=== PATIENT | female | born 1960 | race Caucasian/White ===

== ENCOUNTER 2018-04-15 11:33 | Day surgery (SDC) | payer MEDICARE, MEDICAID ==
--- NOTE | 2018-04-15 05:38 | History and Physical Report ---
DATE: 04/14/2018. CHIEF COMPLAINT AND HISTORY OF CHIEF COMPLAINT: This patient presents with a history of an intractable lumbar radiculopathy. Due to the failure of all therapies, she is here for an implanted spinal catheter infusion trial with hydromorphone to determine if the implantation of a permanent system can be of any value in pain control. A surgical evaluation at [facility] suggested surgery. The patient opted not to have it. She does have plate and screw fusion in the cervical spine, but her primary pain is in the back, hips, and legs. PAST MEDICAL HISTORY: Hypertension, thyroid disease, reflux esophagitis, gastritis, pancreatitis. PAST SURGICAL HISTORY: Tonsils, gallbladder, cervical spine fusion. MEDICATIONS ON ADMISSION: To be provided. ALLERGIES: Pregabalin. SOCIAL HISTORY: Smoking, caffeine. FAMILY HISTORY: Thyroid disease, asthma. REVIEW OF SYSTEMS: The patient seems appropriate and in no acute distress. The remainder of the systems review shows glasses, head and neck pain, sleep disturbance, blood pressure problems, bladder dysfunction, gastrointestinal disease, hepatitis, depression, difficulty sleeping. PHYSICAL EXAMINATION: General: Height and weight unavailable. Vital Signs: Not available. HEENT: Within normal limits. Lungs: Clear. Heart: Regular rate and rhythm. Abdomen: Nontender. Musculoskeletal: Examination of the musculoskeletal system shows diffuse tenderness throughout the low back and extending into the lower extremities. Sensory field abnormalities are identified across both L4 and L5. Motor function shows some weakness symmetrically and bilaterally. Ambulation: No assistive device utilized. Neurologic: Cranial nerves are intact. IMPRESSION: LUMBAR RADICULOPATHY, ICD-10 CODE M54.16 AND M54.17. PLAN: The patient presents today for the implanted spinal catheter infusion trial with hydromorphone to determine if the implantation of a permanent pump can be of any value in pain control. The risks, side effects, and complications have been carefully reviewed and discussed. These include spinal cord injury, nerve root injury, paralysis, and spinal headache. Information was provided through the branch officer including a CD Rom explaining the procedures, risks, side effects, and complications. She has also had contact with a [employer] apprenticeship representative. The patient understands and has consented. The patient understands the surgically implanted catheter exteriorizing an externalized catheter to an external pump. A blood patch will be performed as an adjunct measure to help prevent a headache. This will require the patient lie flat for four hours and then be slowly elevated for one hour. The procedure will be considered outpatient, although an overnight stay will be considered. JOB NUMBER: [id number] cc: Bertha Bell
[~2018-04-15 11:33] MED LIST: ACETAMINOPHEN 1,000 MG/100 ML BTL IV ONE; CEFAZOLIN 2 Gram 2 GM/50 ML BAG IVPB ONE; FAMOTIDINE 20MG TABLET PO ONE; HYDROMORPHONE PF 2MG/ML AMP 0.008 MG in 0.9 % SODIUM CHLORIDE 10ML VIA 0.996 ML IV ONE; HYDROMORPHONE PF 2MG/ML AMP 4 MG in 0.9 % SODIUM CHLORIDE 500ML 498 ML IV ONE; HYDROMORPHONE PF 2MG/ML AMP 8 MG in 0.9 % SODIUM CHLORIDE 500ML 496 ML IV ONE; MECLIZINE 25 MG TABLET PO ONE; METOCLOPRAMIDE 10 MG TABLET PO ONE
[2018-04-15] MEDS ORDERED: BUPIVACAINE 0.5% W/EPI MPF 30 ML VIAL IVP ONE (11:34)
[2018-04-15] MEDS ORDERED: LIDOCAINE 1% MDV (10MG/ML) 20ML VIAL SQ ONE (11:34)
[2018-04-15] MEDS ORDERED: MIDAZOLAM HCL 2MG/2ML VIAL IV ONE (11:34)
[2018-04-15] MEDS ORDERED: FENTANYL PF 100MCG/2ML VIAL IV ONE (11:34)
[2018-04-15] MEDS ORDERED: LIDOCAINE 1% W/EPI 1:200,000 MPF 30ML SQ ONE (11:34)
[2018-04-15] MEDS ORDERED: CEFAZOLIN 1G VIAL IM ONE (11:34)
[2018-04-15] MEDS ORDERED: *PACU ONLY* KETAMINE HCL 10 MG/ML (20ML) VIAL IV ONE (11:34)
[2018-04-15] MEDS ORDERED: PROPOFOL 10 MG/ML VIAL IV ONE (11:34)
[2018-04-15] MEDS ORDERED: DIPHENHYDRAMINE HCL 25 MG CAPSULE PO PRN ×2 (14:45)
[2018-04-15] MEDS ORDERED: HYDROMORPHONE HCL 2 MG/ML VIAL IM PRN ×2 (14:45)
[2018-04-15] MEDS ORDERED: NALOXONE 0.4 MG/1 ML VIAL IVP PRN (14:45)
[2018-04-15] MEDS ORDERED: ACETAMINOPHEN 325 MG TAB PO PRN ×2 (14:45)
[2018-04-15] MEDS ORDERED: METOCLOPRAMIDE 10 MG TABLET PO PRN (14:45)
[2018-04-15] MEDS ORDERED: RINGERS SOLUTION,LACTATED 1,000 ML IV SCH (14:45)
[2018-04-15] MEDS ORDERED: OXYCODONE/APAP 10MG-325MG TABLET PO PRN ×2 (14:45)
[2018-04-15] MEDS ORDERED: AL HYDROX/MAG HYDROX 30ML UD PO PRN (14:45)
[2018-04-15] MEDS ORDERED: TEMAZEPAM 15 MG CAPSULE PO PRN ×2 (14:45)
[2018-04-15] MEDS ORDERED: HYDROCODONE/APAP 7.5/325MG TABLET PO PRN ×2 (14:45)
[2018-04-15] MEDS ORDERED: METOCLOPRAMIDE HCL 10 MG/2 ML VIAL IVP PRN (14:45)
[2018-04-15] MEDS ORDERED: SENNOSIDES/DOCUSATE SODIUM UD CAPSULE PO PRN ×2 (14:45)
[2018-04-15] MEDS ORDERED: DIPHENHYDRAMINE HCL 50 MG/ML VIAL IVP PRN ×2 (14:45)
--- NOTE | 2018-04-15 15:30 | Operative Note - Ferro ---
DATE OF SURGERY: 04/15/18 PREOPERATIVE DIAGNOSIS: POST LUMBAR LAMINECTOMY SYNDROME, ICD-10 CODE = M96.1 WITH RADICULOPATHY, ICD- 10 CODE = M54.16 AND M54.17. SURGERY: 1. FLUOROSCOPIC-GUIDED ACCESS SPINAL SPACE AT L3-4 WITH PLACEMENT OF THIN- WALLED SPINAL CATHETER POSITIONED T12. 2. DIAGNOSTIC MYELOGRAPHY WITH RADIOLOGIC SUPERVISION AND INTERPRETATION. 3. BOLUS OPIOID HYDROMORPHONE INTO THE SPINAL SPACE 0.004 MG. 4. INCISION, SUBCUTANEOUS DISSECTION, AND ANCHORING OF CATHETER TO SUPRASPINOUS FASCIA WITH AN ANCHORING DEVICE AND NONABSORBABLE SUTURE. 5. INCISION, SUBCUTANEOUS DISSECTION, AND CREATION OF SUBCUTANEOUS POUCH AT LEFT POSTERIOR SUPERIOR GLUTEAL MARGIN. 6. TUNNELING MIDLINE SPINAL CATHETER INTO POUCH POSTERIOR, INTERFACE SPINAL CATHETER WITH SECOND CATHETER COMPONENT, SECOND CATHETER COMPONENT TUNNELED 6 CM SUPERIOR EXITING THE SKIN. 7. INTERFACE EXTERNAL CATHETER WITH EXTERNAL PUMP SET TO DELIVER HYDROMORPHONE AT 0.08 MG A DAY. 8. CLOSURE OF INCISIONS WITH VICRYL FOR FASCIA AND RUNNING NYLON FOR SKIN. 9. EPIDURAL BLOOD PATCH AT L4-5, 20 ML AUTOLOGOUS BLOOD STERILE TECHNIQUE LEFT ANTECUBITAL. ALL DRESSINGS PLACED REINFORCING SITES PLACING CATHETER AND ALL CONNECTIONS UNDER STERILE DRESSING. SURGEON: JULIANNA ROSAS D.O. ANESTHESIA: LOCAL SEDATION. ANESTHESIA PROVIDER: TRUNG CHAN CRNA INDICATION: This patient presents with a history of an intractable post laminectomy radiculopathy. Due to the failure of all therapies, she is here for a spinal opioid infusion trial with an implanted catheter Hydromorphone to determine if the implantation of a permanent system can be of any value in pain control. SURGERY: Intravenous line, vital sign monitoring, IV sedation by Anesthesia. The patient positioned prone. Sterile prep, sterile technique. The spinal interspace at L3-4 above the multiple level laminectomy was marked and infiltrated. A #20 gauge spinal needle paramedian approach beveled with a long axis into the spinal space. With CSF flow, a thin-walled spinal catheter was advanced and positioned at T12. Diagnostic myelography performed. Flow characteristics were appropriate; smooth and linear. Tip of the catheter identified straight. With appropriate flow characteristics, a bolus of Hydromorphone 0.004 mg given into the spinal space. The skin above and below the needle infiltrated, incision made and subcutaneous dissection was conducted to the supraspinous fascia. Needle removed. The catheter was anchored to the supraspinous fascia with an anchoring device and nonabsorbable suture. At the left posterior gluteal margin, a site picked by the patient ultimately for the pump, skin infiltrated, incision made and subcutaneous dissection was conducted to form a small pouch of suitable size and depth. A tunneling tool was used to carry the catheter into the subcutaneous pouch and then at the posterior gluteal pouch, the catheter was resected and interfaced with a second catheter component. This second catheter component was tunneled 6 cm superior exiting the skin. The external catheter was then interfaced with an external pump set to infuse Hydromorphone at 0.08 mg a day. The midline incision was closed with Vicryl for fascia and a running nylon for skin. The posterior gluteal pouch was closed with a running nylon. At L4-5, one level below the dural puncture, skin infiltrated and an #18 gauge Tuohy needle with loss-of- resistance into the epidural space. Simultaneously, 20 mL autologous blood drawn with sterile technique left antecubital. This blood was placed onto the field and then an epidural blood patch was performed to this level with this blood. The needle was removed. Dressings were placed securing the catheter and all connections under sterile dressing. She was transported to the Recovery Room flat, pillow under head and knees. She tolerated the procedure without difficulty. Full functionality of extremities and appropriate responses noted. She will be monitored on the Floor for four hours flat, slowly elevated for one , and then evaluated for discharge. She will be kept overnight, that has been encouraged, for observation. IN THE MORNING, DISCHARGE INSTRUCTIONS: 1. The sites are to remain clean and dry. No showering or bathing in any way that would disrupt dressings. If it happens, contact the clinic. 2. Standard medications resumed, including the antibiotic, Levaquin, 500 mg once a day for 14 days. 3. She will return to the office within the two-week trial three times to increase the infusion. The first will happen in the next 2 to 3 days. Spinal opioid side-effects including respiratory depression, nausea, vomiting, constipation, urinary retention, lightheadedness or rash have all been discussed and reviewed. All instructions provided, numbers to contact if problems given. She will be discharged in the morning. cc: Dr. Gallardo JOB NUMBER: [id number] [facility]
[2018-04-15] MEDS ORDERED: FUROSEMIDE 40 MG TABLET PO PRN (16:03)
[2018-04-15] MEDS ORDERED: PROMETHAZINE HCL 25 MG TABLET PO PRN (16:03)
[2018-04-15] MEDS ORDERED: ALBUTEROL HFA 8 GM INHALER INH PRN (16:04)
[2018-04-15] MEDS ORDERED: [UNRECOGNIZED DRUG - REMARK] PO SCH (17:00)
[2018-04-15] MEDS ORDERED: CEFAZOLIN 2 Gram 2 GM/50 ML BAG IVPB SCH (21:30)
[2018-04-15] MEDS ORDERED: MAGNESIUM OXIDE 400 MG TABLET PO SCH (22:00)
[2018-04-15] MEDS ORDERED: PAROXETINE HCL 10 MG TABLET PO SCH (22:00)
[2018-04-15] MEDS ORDERED: SIMVASTATIN 20 MG TABLET PO SCH (22:00)
[2018-04-15] MEDS ORDERED: LISINOPRIL 20 MG TABLET PO SCH (22:00)
[2018-04-15] MEDS ORDERED: GABAPENTIN 300 MG CAPSULE PO SCH (22:00)
[2018-04-16] MEDS ORDERED: LEVOTHYROXINE SODIUM 125 MCG TABLET PO SCH (07:00)
[2018-04-16] MEDS ORDERED: PANTOPRAZOLE SODIUM 40 MG TABLET PO SCH (12:00)
--- NOTE | 2018-04-18 14:51 | RADIOLOGY REPORT ---
DATE: 04/15/2018. EXAM: AP VIEW OF THE LUMBAR SPINE. HISTORY: Postoperative. TECHNIQUE: AP view of the lumbar spine. COMPARISON: None. FINDINGS: Stimulating wires are partially seen. Surgical clips in the right upper quadrant. Abundant stool in the colon. IMPRESSION: PARTIAL VISUALIZATION OF STIMULATING WIRES. JOB NUMBER: [id number] MTDD
== END 2018-04-15 20:08 | disposition home or self-care (01) ==
LOC: SUR 11:33 → MEDSURG 15:20 → SUR 20:08
PROVIDERS: ATTEND Pain Medicine Interventional Pain Medicine
DX: M96.1 Postlaminectomy syndrome, not elsewhere classified (principal); M54.17 Radiculopathy, lumbosacral region; M54.16 Radiculopathy, lumbar region; E03.9 Hypothyroidism, unspecified; I10 Essential (primary) hypertension; F17.200 Nicotine dependence, unspecified, uncomplicated; E11.9 Type 2 diabetes mellitus without complications
CPT/HCPCS: 72020; 94760; J0690; J1170; J7040

== ENCOUNTER 2018-04-29 11:42 | Day surgery (SDC) | payer MEDICARE, MEDICAID ==
--- NOTE | 2018-04-29 07:19 | History and Physical Report ---
DATE: 04/29/2018. CHIEF COMPLAINT AND HISTORY OF CHIEF COMPLAINT: This patient presents with an ongoing implanted spinal catheter trial with hydromorphone. She is here for permanent implantation of spinal infusion device after a successful trial. PAST MEDICAL HISTORY: No interval changes. PAST SURGICAL HISTORY: No interval changes. MEDICATIONS ON ADMISSION: To be provided. ALLERGIES: Pregabalin, levofloxacin. SOCIAL HISTORY: No interval changes. FAMILY HISTORY: No interval changes. REVIEW OF SYSTEMS: The patient is appropriate and in no acute distress. PHYSICAL EXAMINATION: General: Height and weight unavailable. Vital Signs: Not available. HEENT: Within normal limits. Lungs: Clear. Heart: Regular rate and rhythm. Abdomen: Nontender. Musculoskeletal: Examination of the musculoskeletal system shows the dressings for the implanted catheter trial are intact and in place. Further examination shows the externalized infusion device is in place. The dressings covering the implanted catheter are all in place. There is no breakdown or drainage. Neurologic: Cranial nerves are intact. IMPRESSION: 1. LUMBAR RADICULOPATHY, ICD-10 CODE M54.16 AND M54.17. 2. IMPLANTED SPINAL CATHETER INFUSION TRIAL WITH HYDROMORPHONE. PLAN: The patient is here for implantation of a permanent system due to the ongoing trial with greater than 75 percent pain control. The potential risks, side effects, and complications have been reviewed and the patient understands. We will remove all of the external components and interface the pump at the posterior gluteal margin with the implanted catheter. JOB NUMBER: [id number] cc: Bertha Bell
[~2018-04-29 11:42] MED LIST changes: +HYDROMORPHONE HCL 0.08 GM in 0.9 % SODIUM CHLORIDE 10ML VIA 40 ML IV ONE; +HYDROMORPHONE PF 2MG/ML AMP 0.004 MG in 0.9 % SODIUM CHLORIDE 10ML VIA 0.998 ML IV ONE; -HYDROMORPHONE PF 2MG/ML AMP 0.008 MG in 0.9 % SODIUM CHLORIDE 10ML VIA 0.996 ML IV ONE; -HYDROMORPHONE PF 2MG/ML AMP 4 MG in 0.9 % SODIUM CHLORIDE 500ML 498 ML IV ONE; -HYDROMORPHONE PF 2MG/ML AMP 8 MG in 0.9 % SODIUM CHLORIDE 500ML 496 ML IV ONE
[2018-04-29] MEDS ORDERED: PROPOFOL 10 MG/ML VIAL IV ONE (11:43)
[2018-04-29] MEDS ORDERED: FENTANYL PF 100MCG/2ML VIAL IV ONE (11:43)
[2018-04-29] MEDS ORDERED: MIDAZOLAM HCL 2MG/2ML VIAL IV ONE (11:43)
[2018-04-29] MEDS ORDERED: LIDOCAINE 1% MDV (10MG/ML) 20ML VIAL SQ ONE (11:43)
--- NOTE | 2018-04-29 20:48 | Operative Note - Ferro ---
DATE OF SURGERY: 04/29/18. PREOPERATIVE DIAGNOSES: 1. POST LUMBAR LAMINECTOMY SYNDROME, ICD-10 CODE = M96.1 WITH RADICULOPATHY, ICD-10 CODE = M54.16 AND M54.17. 2. IMPLANTED SPINAL CATHETER INFUSION TRIAL OF HYDROMORPHONE. SURGERY: 1. FLUOROSCOPIC-GUIDED INCISION, SUBCUTANEOUS DISSECTION, AND REMOVAL OF EXTERNAL CATHETER. 2. FLUOROSCOPIC-GUIDED INCISION, SUBCUTANEOUS DISSECTION, AND CREATION OF SUBCUTANEOUS POUCH AT LEFT POSTERIOR SUPERIOR GLUTEAL MARGIN FOR PLACEMENT OF PUMP IDENTIFIED A MEDTRONIC 40 ML PROGRAMMABLE. 3. REVISION IMPLANTED SPINAL CATHETER USING CONNECTOR AND SECOND CATHETER COMPONENT. REVISE CATHETER INTERFACED TO PUMP IDENTIFIED A MEDTRONIC 40 ML PROGRAMMABLE PRE-FILLED WITH 1 MG PER ML CONCENTRATION OF HYDROMORPHONE POSITIONED ON FIELD. 4. PLACEMENT OF PUMP INTERFACED TO SPINAL CATHETER INTO POUCH SECURING TO POSTERIOR FASCIA WITH NONABSORBABLE SUTURE AT THREE POINTS PUMP EYELETS. 5. PLACEMENT OF CURVED #24 GAUGE MANUEL NEEDLE INTO ACCESS PORT PROGRAMMABLE PUMP, ASPIRATION AND CLEARING CATHETER OF OPIOID AND CSF MIXTURE. 6. DIAGNOSTIC MYELOGRAPHY WITH RADIOLOGIC SUPERVISION AND INTERPRETATION CONFIRMING FUNCTIONALITY OF THE SYSTEM. 7. CLOSURE OF INCISION WITH VICRYL FOR FASCIA, RUNNING SUBCUTICULAR VICRYL FOR SKIN. DERMABOND CLOSURE. 8. PROGRAMMING OF PUMP TO DELIVER BY CONTINUOUS INFUSION HYDROMORPHONE AT 0.3 MG PER DAY. SURGEON: JULIANNA ROSAS D.O. ANESTHESIA: LOCAL SEDATION. ANESTHESIA PROVIDER: SHANNON LINDSEY CRNA INDICATIONS: This patient presents with a implanted spinal catheter infusion trial of Hydromorphone with 75% pain control. Due to the failure of all other therapy and the success of the trial, she presents today for a implantation of a permanent system. PROCEDURE: Intravenous line, vital sign monitoring, IV sedation, prepped draped sterile technique, patient positioned on the operating table prone. The external dressings were removed. The external pump was removed. Sterile prep, sterile technique and using a local. A small left posterior gluteal pouch was infiltrated with local, incision made and subcutaneous dissection was conducted to the interface between the indwelling and external catheter. The connector was clamped and the external catheter cut and removed, pulling away from the incision. This incision was then infiltrated with local, widened and deepened to accommodate a pump identified as a Medtronic 40 mL programmable. The pump was placed onto the field, pre-filled with Hydromorphone at 1 mg per mL. The implanted, indwelling spinal catheter was then revised, resected using a connector, and a second catheter component. This revised catheter was then interfaced to the pump on the field. Antibiotic irrigation and Bovie for hemostasis. The pump was placed into the pouch and secured to the posterior fascia with nonabsorbable suture, three points, pump eyelets. With the pump secured into the pouch and connected to the catheter, a #24 gauge Manuel needle was inserted into the access port and 1 mL of catheter contents was aspirated clearing the catheter of opioid and CSF mixture. Contrast flow characteristics were appropriate, smooth and linear. The functionality of the system was then confirmed. The incision was then closed with Vicryl for fascia and running subcuticular Vicryl for skin, Dermabond closure. She was transported to the Recovery Room stable with no side-effects from the procedure or the sedation. When fully awake and alert, complex programming was then performed setting her base rate at 0.3 mg per day. She monitored until stable and then prepared for discharge. DISCHARGE INSTRUCTIONS: 1. The site is to remain clean and dry.No showering or bathing in any way that would disrupt dressings. If it happens, contact the clinic. 2. Standard medications resumed including Levaquin, the antibiotic, 500 mg once a day for 14 days. 3. The patient will evaluate the increase and monitor her side-effects. Respiratory depression, nausea, vomiting, constipation, urinary retention, light headedness or rash. If it happens, contact the clinic. All other instructions provided, numbers to contact if problems were given. She will be contacted by the office in 24 hours to set up an appointment in 7 to 10 days to evaluate the sites. Throughout this period of time, she is to keep her activities low. Limit bend, lift, push, pull. All other instructions provided, numbers to contact if problems were given. She was then discharged. cc: Dr. Gallardo JOB NUMBER: [id number] [facility]
== END 2018-04-29 15:00 | disposition home or self-care (01) ==
LOC: SUR 11:42
PROVIDERS: ATTEND Pain Medicine Interventional Pain Medicine
DX: M96.1 Postlaminectomy syndrome, not elsewhere classified (principal); M54.16 Radiculopathy, lumbar region; M54.17 Radiculopathy, lumbosacral region
CPT/HCPCS: 62367; C1755; J1170

== ENCOUNTER 2018-09-16 10:36 | Inpatient (IN) | payer MEDICARE, MEDICAID ==
--- NOTE | 2018-09-16 06:28 | History and Physical - Ferro ---
CHIEF COMPLAINT/HISTORY OF CHIEF COMPLAINT: This patient had an implanted catheter trial initiated on 04/15/18 with a pump implant on 04/28/18. Although all of her postop measures appeared to be good, according to the patient just slightly before or on 09/08/18 she started to notice an error in the outer most aspect of the pump pouch left posterior gluteal margin start to breakdown. By 09/10/18 or this patient stated to have drainage. She went to a local Emergency Room, she was started on an antibiotic. She was seen in the office within the last twenty-four to forty- eight hours and was found to have a lateral margin incisional line infection which was draining a purulent discharge. She has been afebrile. There were no labs available for review. She is here for probable removal of the pump and catheter and a possible removal and relocation. PAST MEDICAL HISTORY: Hypertension, hypothyroidism, reflux esophagitis, gastritis, and chronic pancreatitis. PAST SURGICAL HISTORY: Tonsils, gallbladder, and cervical spine fusion. MEDICATIONS ON ADMISSION: List to be provided. ALLERGIES: None. FAMILY/PSYCHOSOCIAL HISTORY: Social history - Smoking and caffeine. Family history - Thyroid disease, asthma, and diabetes. SYSTEMS REVIEW: The patient is appropriate in no acute distress. The remainder of the systems review is positive for glasses, head and neck pain, sleep disturbance, blood pressure, bladder dysfunction, gastrointestinal disease , hepatitis, depression, and difficulty sleeping. PHYSICAL EXAMINATION: Height and weight are not known. Vital signs - Blood pressure 140/80. Current examination shows the pouch at the left posterior gluteal margin to have an area of drainage at the lateral margin. There is bruising or discoloration along the more medial aspect of the pump although there is no breakdown noted. The area does not appear to be warm to palpation. Her chronic pain pattern is a lumbar radiculopathy somewhat more left than right. Motor sensory abnormalities are noted to the left. Sensory victor are intact. NEUROLOGIC: Cranial nerves are intact. IMPRESSION: 1. INTRACTABLE LUMBAR RADICULOPATHY, ICD-10 CODE M54.16 AND M54.17. 2. IMPLANTED SPINAL FUSION SYSTEM DEVICE, PUMP AND CATHETER WITH INFECTED PUMP POUCH. PLAN: The patient did discuss the history of sepsis from an infection which required an extended hospitalization. The source of the infection appeared to be vague. Currently she has a pump pouch infection at the left posterior gluteal margin. My plan will be to open the pouch, at minimum remove and replace the system to the opposite right side. I suggested to the patient that a high probability will be a complete removal and initiation of antibiotic therapy. Depending upon the severity of the infection this could be oral antibiotics. If relatively severe she will be set up for PIC line and intravenous home antibiotic therapy. This will be decided on the day we open the pouch. The patient is prepared for either and all potential situations. During the initial evaluation the pouch had not opened, there was no exposure of device and although there was drainage it was not copious, and she was not demonstrating systemic illness. The potential risks, side effects and complications have been reviewed and discussed. We will take cultures from every pouch and location. She will stay overnight at minimum and then be evaluated for discharge the following morning. JOB NUMBER: [id number] MTDD
[2018-09-16] MEDS ORDERED: BUPIVACAINE 0.5% W/EPI MPF 30 ML VIAL IVP ONE (10:37)
[2018-09-16] MEDS ORDERED: PROPOFOL 10 MG/ML VIAL IV ONE (10:37)
[2018-09-16] MEDS ORDERED: HYDROMORPHONE HCL 2 MG/ML VIAL IV ONE (10:37)
[2018-09-16] MEDS ORDERED: FENTANYL PF 100MCG/2ML VIAL IV ONE (10:37)
[2018-09-16] MEDS ORDERED: MECLIZINE 25 MG TABLET PO ONE (10:37)
[2018-09-16] MEDS ORDERED: KETAMINE HCL 100MG/1ML VIAL INJ ONE (10:37)
[2018-09-16] MEDS ORDERED: CEFAZOLIN 2 Gram 2 GM/50 ML BAG IVPB ONE (10:37)
[2018-09-16] MEDS ORDERED: FAMOTIDINE 20MG TABLET PO ONE (10:37)
[2018-09-16] MEDS ORDERED: LIDOCAINE 1% W/EPI 1:200,000 MPF 30ML SQ ONE (10:37)
[2018-09-16] MEDS ORDERED: MIDAZOLAM HCL 2MG/2ML VIAL IV ONE (10:37)
[2018-09-16] MEDS ORDERED: CEFAZOLIN 1G VIAL IM ONE (10:37)
[2018-09-16] MEDS ORDERED: METOCLOPRAMIDE 10 MG TABLET PO ONE (10:37)
[2018-09-16] MEDS ORDERED: ACETAMINOPHEN 1,000 MG/100 ML BTL IV ONE (10:37)
[2018-09-16 10:53] LABS: BASO % 0.2 % (0-6); EOS % 2.2 % (0-6); GRAN % 61.4 % (47-80); HEMATOCRIT 41.3 % (35.0-47.0); HEMOGLOBIN 13.4 gm/dl (11.6-16.0); LYMPH % 29.7 % (16-45); MEAN CELL VOLUME 82.8 fl (81-97); MEAN CORPUSCULAR HEMOGLOBIN 26.9 pg (27-33); MEAN CORPUSCULAR HGB CONC 32.4 g/dl (32-36); MEAN PLATELET VOLUME 9.9 fl (7.4-10.4); MONO % 6.5 % (0-9); PLATELET COUNT 271 K/uL (130-400); RED BLOOD COUNT 4.99 M/uL (3.80-5.40); RED CELL DISTRIBUTION WIDTH 14.7 % (11.5-14.5); WHITE BLOOD COUNT W/O DIFF 5.5 K/uL (4.2-12.2)
[2018-09-16 11:05] LABS: BLOOD UREA NITROGEN 6 mg/dL (6-20); CREATININE 0.8 mg/dL (0.5-0.9); EST GLOMERULAR FILTRATION RATE > 60 mL/min; GLUCOSE,RANDOM 151 mg/dL (74-109)
[2018-09-16 11:06] LABS: INR 0.9; PARTIAL THROMBOPLASTIN TIME 24.2 SECONDS (24.5-39.1); PROTHROMBIN TIME (PATIENT) 9.5 SECONDS (9.5-12.1)
[2018-09-16] MEDS ORDERED: METOCLOPRAMIDE 10 MG TABLET PO PRN (15:43)
[2018-09-16] MEDS ORDERED: METOCLOPRAMIDE HCL 10 MG/2 ML VIAL IVP PRN (15:43)
[2018-09-16] MEDS ORDERED: AL HYDROX/MAG HYDROX 30ML UD PO PRN (15:43)
[2018-09-16] MEDS ORDERED: HYDROMORPHONE HCL 2 MG/ML VIAL IM PRN (15:43)
[2018-09-16] MEDS ORDERED: DIPHENHYDRAMINE HCL 50 MG/ML VIAL IVP PRN ×2 (15:43)
[2018-09-16] MEDS ORDERED: ACETAMINOPHEN 325 MG TAB PO PRN (15:43)
[2018-09-16] MEDS ORDERED: DIPHENHYDRAMINE HCL 25 MG CAPSULE PO PRN ×2 (15:43)
[2018-09-16] MEDS ORDERED: TEMAZEPAM 15 MG CAPSULE PO PRN ×2 (15:43)
[2018-09-16] MEDS ORDERED: HYDROCODONE/APAP 7.5/325MG TABLET PO PRN ×2 (15:43)
[2018-09-16] MEDS ORDERED: SENNOSIDES/DOCUSATE SODIUM UD CAPSULE PO PRN ×2 (15:43)
[2018-09-16] MEDS ORDERED: ALBUTEROL HFA 8 GM INHALER INH PRN (15:49)
[2018-09-16] MEDS: NICOTINE 21 MG/24 HOUR PATCH TD SCH (16:25)
[2018-09-16] MEDS ORDERED: [UNRECOGNIZED DRUG - REMARK] PO PRN (16:40)
[2018-09-16] MEDS: HYDROMORPHONE HCL 2 MG/ML VIAL IM PRN ×2 (16:56→18:51)
[2018-09-16] MEDS: GABAPENTIN 300 MG CAPSULE PO SCH ×2 (16:59→21:43)
[2018-09-16] MEDS: PANTOPRAZOLE SODIUM 40 MG TABLET PO SCH (17:00)
[2018-09-16] MEDS: PAROXETINE HCL 10 MG TABLET PO SCH (17:00)
[2018-09-16] MEDS: [UNRECOGNIZED DRUG - REMARK] PO SCH (17:00)
[2018-09-16] MEDS: RINGERS SOLUTION,LACTATED 1,000 ML IV SCH ×2 (17:04→20:07)
[2018-09-16] MEDS: METFORMIN ER HCL 500 MG TAB.ER.24H PO SCH (21:42)
[2018-09-16] MEDS: SIMVASTATIN 20 MG TABLET PO SCH (21:43)
[2018-09-16] MEDS: CEFAZOLIN 2 Gram 2 GM/50 ML BAG IVPB SCH (21:44)
[2018-09-17] MEDS: RINGERS SOLUTION,LACTATED 1,000 ML IV SCH ×4 (04:47→22:15)
[2018-09-17] MEDS: CEFAZOLIN 2 Gram 2 GM/50 ML BAG IVPB SCH ×2 (05:32→13:22)
[2018-09-17] MEDS: LOSARTAN POTASSIUM 25 MG TABLET PO SCH ×2 (06:46→13:22)
[2018-09-17] MEDS: LEVOTHYROXINE SODIUM 125 MCG TABLET PO SCH (06:46)
[2018-09-17] MEDS: HYDROMORPHONE HCL 2 MG/ML VIAL IM PRN (06:59)
[2018-09-17] MEDS: [UNRECOGNIZED DRUG - REMARK] PO SCH ×3 (08:02→17:16)
[2018-09-17] MEDS: OXYCODONE/APAP 10MG-325MG TABLET PO PRN ×4 (08:59→21:28)
[2018-09-17] MEDS: FUROSEMIDE 40 MG TABLET PO SCH (09:03)
[2018-09-17] MEDS: GABAPENTIN 300 MG CAPSULE PO SCH ×3 (09:03→21:27)
[2018-09-17] MEDS: NICOTINE 21 MG/24 HOUR PATCH TD SCH (09:03)
[2018-09-17] MEDS ORDERED: METOPROLOL TART 5 MG/5 ML VIAL IV ONE (09:36)
[2018-09-17] MEDS: PAROXETINE HCL 10 MG TABLET PO SCH (13:22)
[2018-09-17] MEDS: PANTOPRAZOLE SODIUM 40 MG TABLET PO SCH (13:22)
[2018-09-17] MEDS: ACETAMINOPHEN 325 MG TAB PO PRN (13:31)
[2018-09-17] MEDS ORDERED: METOPROLOL TART 5 MG/5 ML VIAL IV PRN (14:06)
[2018-09-17] MEDS: ONDANSETRON 4 MG ODT TABLET SL PRN (20:29)
[2018-09-17] MEDS: SIMVASTATIN 20 MG TABLET PO SCH (21:25)
[2018-09-17] MEDS: TMP/SMZ 160MG/800MG TAB PO SCH (21:25)
[2018-09-17] MEDS: METOPROLOL TART 25 MG TABLET PO SCH (21:28)
[2018-09-17] MEDS: METFORMIN ER HCL 500 MG TAB.ER.24H PO SCH (21:28)
--- NOTE | 2018-09-17 21:41 | Consult ---
Consult Order Detail - Reason for Consult Consult Date: 09/17/18 - Chief Complaint Chief Complaint: POST LUMBAR LAMINECTOMY HPI Consult - History of Present Illness History of Present Illness: Pt presents for surgical removal of pain pump related to infection. Consult for uncontrolled BP Home medications including but not limited to losartan 50mg BID, has Lasix 40mg PO PRN for edema PMH chronic pain, HTN and former smoker with probable COPD. Denies h/o OH or heart block. Past Medical History - SOCIAL HISTORY Smoking Status: Current every day smoker Alcohol Use: None - RESPIRATORY Hx Respiratory Disorders: Yes Hx Bronchitis: Yes Hx Pneumonia: Yes Hx Sleep Apnea: Yes Hx of CPAP: No - CARDIOVASCULAR Hx Cardio Disorders: Yes Hx Hypertension: Yes (on Losartan good control) - NEURO Hx Neuro Disorders: Yes Hx of Migraines: Yes (once every 4-5 months) - GI Hx GI Disorders: Yes Hx Reflux: Yes Hx Hepatitis/Jaundice: Yes (Hep A at age 10) Hx Nausea/Vomiting: Yes (occassionally) Hx Pancreatitis: Yes (chronic) - Hx Genitourinary Disorders: Yes Hx Bladder Problem: Yes (urgency recently) Comment:: s/p hyst - ENDOCRINE Hx Endocrine Disorders: Yes Hx Diabetes: Yes Hx Thyroid Disease: Yes Comment:: doesnt check regularly 151 09-15-18 - MUSCULOSKELETAL Hx Musculoskeletal Disorders: Yes Hx Arthritis: Yes (OA) Hx Back Injury: Yes (back sx x's 3 cervical fusion) Comment:: Dilaudid trial helped - PSYCH Hx Psych Problems: Yes Hx Anxiety: Yes Hx Depression: Yes Hx Suicide Attempt: Yes (not for a long time) Major Depressive Episode: Yes - HEMATOLOGY/ONCOLOGY Hx Hematology/Oncology Disorders: No Family Medical History Hx Cancer: Mother Hx Heart Disease: Brother/Sister H&P Meds - Home Medications and Allergies Allergies Allergy/AdvReac Type Severity Reaction Status Date / Time levofloxacin [From Levaquin] Allergy Severe NAUSEA AND Verified 04/24/18 11:31 VOMITING pregabalin [From Lyrica] AdvReac Intermediate ALTERED Verified 04/24/18 11:31 MENTAL STATUS Physical Exam - Vital Signs Vital Signs: Vital Signs - Last 24 Hrs Temp Pulse Resp BP BP Pulse Ox 09/17/18 20:00 97.9 F 101 H 18 164/86 93 L 09/17/18 16:03 97 H 153/90 93 L 09/17/18 13:26 104 H 16 163/76 94 L 09/17/18 11:50 143/71 09/17/18 10:29 94 H 146/83 09/17/18 09:58 98 H 158/85 09/17/18 09:45 93 H 150/79 09/17/18 09:28 170/90 09/17/18 09:25 115 H 16 169/92 92 L 09/17/18 09:00 16 09/17/18 08:30 98.2 F 114 H 14 198/103 93 L 09/17/18 06:00 102 H 18 186/105 95 09/17/18 02:00 84 18 158/89 96 - General General Appearance: Alert, Oriented x3, Cooperative, Mild distress Limitations: No limitations - Head Head exam: Atraumatic - Eye Eye exam: Normal appearance, PERRL - ENT ENT exam: Mucous membranes moist - Neck Neck exam: Normal inspection - Respiratory Respiratory exam: Normal lung sounds bilaterally - Cardiovascular Cardiovascular Exam: Normal rhythm, Normal heart sounds, Tachycardia Peripheral Pulses: 3+: Radial (R), Radial (L), Dorsalis Pedis (R), Dorsalis Pedis (L) - GI/Abdominal GI/Abdominal exam: Soft, Normal bowel sounds - Rectal Rectal exam: Deferred - exam: Deferred - Extremities Extremities exam: Normal inspection, Normal capillary refill, Pedal edema (+2). negative: Calf tenderness - Neurological Neurological exam: Alert, Oriented X3 - Psychiatric Psychiatric exam: Normal affect, Normal mood Results - Labs Result Diagrams: 09/16/18 10:44 09/16/18 10:44 Assessment and Plan - Assessment and Plan (1) Hypertension Current Visit: Yes Status: Acute Base Code: I10 - ESSENTIAL (PRIMARY) HYPERTENSION Comment: 09/17/18 -Dr Williasmon consulted for HTN mgt s/p pain pump removal r/t absessed infection -Pt reports LONGORIA and has elevated BP, missed losartan dosing day before r/t surgical procedure, medicated this AM but BP remains elevated along with elevated HR -EKG reviewed (no HB noted) -pt medicated with metoprolol 2.5g IVP, improved BP and LONGORIA controlled -repeat BP after second dose losartan, repeat dose of meptoprolol 2.5mg IVP and PO dosing ordered
[2018-09-18] MEDS: OXYCODONE/APAP 10MG-325MG TABLET PO PRN ×3 (02:46→12:30)
[2018-09-18] MEDS: LEVOTHYROXINE SODIUM 125 MCG TABLET PO SCH (06:03)
[2018-09-18] MEDS: RINGERS SOLUTION,LACTATED 1,000 ML IV SCH ×2 (06:05→08:13)
[2018-09-18] MEDS: [UNRECOGNIZED DRUG - REMARK] PO SCH (08:03)
[2018-09-18] MEDS: NICOTINE 21 MG/24 HOUR PATCH TD SCH (10:08)
[2018-09-18] MEDS: METOPROLOL TART 25 MG TABLET PO SCH (10:34)
[2018-09-18] MEDS: FUROSEMIDE 40 MG TABLET PO SCH (10:34)
[2018-09-18] MEDS: TMP/SMZ 160MG/800MG TAB PO SCH (10:34)
[2018-09-18] MEDS: GABAPENTIN 300 MG CAPSULE PO SCH (10:34)
--- NOTE | 2018-09-18 10:39 | Operative Note ---
DATE OF SURGERY: 09/16/2018. PREOPERATIVE DIAGNOSIS: 1. POSTLUMBAR LAMINECTOMY SYNDROME, ICD-10 CODE M96.1. 2. RADICULOPATHY, ICD-10 CODE M54.16 AND M54.17. 3. IMPLANTED SPINAL OPIOID INFUSION SYSTEM WITH HYDROMORPHONE WITH PUMP POUCH INFECTION, LEFT POSTERIOR GLUTEAL MARGIN. OPERATION: 1. Incision, subcutaneous dissection, and removal of programmable pump at left posterior gluteal margin with aerobic and anaerobic cultures. 2. Incision, subcutaneous dissection, and removal of spinal catheter, midline L3-4. Pouch cleaned. Aerobic and anaerobic cultures taken. 3. Closure of midline incision with Vicryl for the fascia and jo-ann for the skin. 4. Closure of left posterior gluteal margin pouch using Vicryl for the fascia and running nylon for the skin. 5. Bulb drain placed. 6. Dressings placed; OpSite with Telfa padding. SURGEON: Jalil Williamson D.O. ANESTHESIA: Local sedation. ANESTHESIA PROVIDER: Salome Whitlock CRNA. INDICATION: This patient presents with a pump implant which was placed in April of 2018. On approximately September 10, this patient identified an area of breakdown in the lateral margin of the posterior gluteal pouch. Over the following days, there was drainage. She went to the emergency room where an infection was identified. She was placed on Keflex 500 mg b.i.d. The labs taken in the emergency room showed no elevated white count. She was afebrile. She was seen in my office with an obvious infection at the lateral margin of the incision for the pump at the left posterior gluteal margin. She was brought in today for removal of the device. DESCRIPTION OF PROCEDURE: Intravenous line, vital sign monitoring, and intravenous sedation. Prepped and draped with sterile technique. The patient was positioned prone. The incision for the pump at the left posterior gluteal margin was infiltrated. An incision was made and subcutaneous dissection was conducted. A purulent drainage was noted in the lateral margin of the pump pouch at the lateral margin of the pump itself. It appeared to be fairly isolated and loculated. Aerobic and anaerobic cultures were taken. The pump was exteriorized, the sutures were removed, and the catheter was clamped. The midline catheter incision approximating L3-4 was infiltrated. An incision was made and subcutaneous dissection was conducted to the catheter, anchor, and suture. It was clean and dry with no discharge and no purulence noted. Aerobic and anaerobic cultures were taken. The sutures were cut and the catheter was removed after a pursestring suture was placed to stop cerebrospinal fluid leak. Antibiotic irrigation and Bovie for hemostasis. Copious antibiotic irrigation. There was a significant amount of oozing from the pump pouch. It was felt that placement of a bulb drain was appropriate. The midline catheter incision was closed with Vicryl for the fascia and jo-ann for the skin. The left posterior pouch incision was closed with Vicryl for the fascia and a running nylon for the skin. An anticoagulant mesh had been placed along with the bulb drain. Dressings were placed over the incision. She was transported to the recovery room painful but stable. DISCHARGE INSTRUCTIONS: 1. She will be started on an oral analgesic. Her pump was turned off with 1.0 mg a day of hydromorphone. She will be started on oral hydromorphone or Dilaudid at 4.0 mg roughly four a day or one every four to six hours; a ten-day prescription will be given to get her over what may be withdrawal syndrome. 2. The office has also called and faxed a prescription for Librium to help prevent further withdrawal symptoms at 25 mg p.r.n.; maximum of four per day. She was given an anti-emetic for nausea. 3. She will be kept overnight for observation and will be discharged in the morning if stable. At that point the staff will check the drain. If there is still more drainage, then the drain will be pulled. If there is continued drainage, she will be seen in the office in seven to ten days at which point the drain will be pulled. 4. We will await the results of the culture and sensitivities. Based upon a pharmacy discussion, it was felt the Bactrim-DS one b.i.d. would be started and then depending upon the results as stated, modifications will be made. 5. Standard medications to be resumed. 6. The office is to contact the patient within the next 24 to 48 hours to set up a time she can be seen in the office to check the incisions and to evaluate the progress on the antibiotic. At that point, culture results should be available. 7. All other instructions were provided and numbers to contact with problems were given. 8. A full discussion had taken place with the person who transported her who was a friend and neighbor. 9. All of the above was mentioned to the patient herself. JOB NUMBER: [id number] cc: Dr. Linda PHELPS
[2018-09-18] MEDS: ACETAMINOPHEN 325 MG TAB PO PRN (10:40)
[2018-09-18] MEDS: LOSARTAN POTASSIUM 25 MG TABLET PO SCH (12:29)
[2018-09-18] MEDS: ONDANSETRON 4 MG ODT TABLET SL PRN (12:30)
== END 2018-09-18 14:10 | disposition home or self-care (01) | DRG 552 ==
LOC: SUR 10:36 → MEDSURG 16:35 → SUR 16:35 → MEDSURG 09-17 16:35 → SUR 09-17 16:40 → MEDSURG 09-17 16:41
PROVIDERS: ADMIT Pain Medicine Interventional Pain Medicine; ATTEND Pain Medicine Interventional Pain Medicine
DX: M96.1 Postlaminectomy syndrome, not elsewhere classified (principal); T85.738A Infection and inflammatory reaction due to other nervous system device, implant or graft, initial encounter; K86.1 Other chronic pancreatitis; M54.16 Radiculopathy, lumbar region; M54.17 Radiculopathy, lumbosacral region; I10 Essential (primary) hypertension; E11.9 Type 2 diabetes mellitus without complications
CPT/HCPCS: 80048; 85002; 85025; 85610; 85730; 90686; 93005; J0690; J3490; J7120

== ENCOUNTER 2019-01-06 09:55 | Day surgery (SDC) | payer MEDICARE, MEDICAID ==
--- NOTE | 2019-01-06 07:15 | History and Physical - [place] ---
CHIEF COMPLAINT/HISTORY OF CHIEF COMPLAINT: This patient with a history of intractable post lumbar laminectomy had a previous pump removed from the left posterior gluteal margin because of pouch breakdown. After appropriate antibiotic therapy and resolution of the pouch infection she is here for replacement of the system to the opposite right side. PAST MEDICAL HISTORY: Hypertension, hypothyroidism, reflux, gastritis, and pancreatitis. PAST SURGICAL HISTORY: Tonsils, gallbladder, cervical spine fusion, and lumbar spine fusion. MEDICATIONS ON ADMISSION: List to be provided. ALLERGIES: None. FAMILY/PSYCHOSOCIAL HISTORY: Social history - Smoking and caffeine. Family history - Thyroid disease, asthma, and diabetes. SYSTEMS REVIEW: The patient seems appropriate in no acute distress. The remainder of the systems reviews is positive for glasses, head and neck pain, sleep disturbance, blood pressure, bladder dysfunction, gastrointestinal disease , hepatitis, depression, and difficulty sleeping. PHYSICAL EXAMINATION: Height and weight not identified. Vital signs - None available. HEENT: Within normal limits. LUNGS: Clear. HEART: Rapid and regular. ABDOMEN: Nontender. MUSCULOSKELETAL: Examination of the musculoskeletal system shows the previous pouch left posterior gluteal margin healed. Pain in her low back with a bilateral lower extremity extension. Motor and sensory evaluation in the lower extremities appears to be intact. There is pain across multiple distributions and dermatomes. NEUROLOGIC: Cranial nerves are intact. IMPRESSION: POST CERVICAL LUMBAR LAMINECTOMY SYNDROME, ICD-10 CODE M96.1 WITH RADICULOPATHY , ICD-10 CODE M54.16 AND M54.17. PLAN: The patient is here by her request for implantation of a permanent pump and catheter. We have already had a device in place, it had to be removed because of breakdown to the pump pouch on the left side. The new system will be placed strictly to the right with new incisions and new pouches. Potential risks, side effects and complications have been reviewed and discussed. She has been off antibiotics and has been stable. The previous site was inspected, evaluated and treated with appropriate antibiotic therapy. This re- implantation is being requested by the patient. She understands the potential risks, side effects, and complications. She understands the possible recurrence of infection. JOB NUMBER: [id number] [facility]
[~2019-01-06 09:55] MED LIST changes: +HYDROMORPHONE HCL 0.04 GM in 0.9 % SODIUM CHLORIDE 10ML VIA 20 ML IV ONE; -HYDROMORPHONE HCL 0.08 GM in 0.9 % SODIUM CHLORIDE 10ML VIA 40 ML IV ONE; -HYDROMORPHONE PF 2MG/ML AMP 0.004 MG in 0.9 % SODIUM CHLORIDE 10ML VIA 0.998 ML IV ONE; +HYDROMORPHONE PF 2MG/ML AMP 0.008 MG in 0.9 % SODIUM CHLORIDE 10ML VIA 0.996 ML IV ONE
[2019-01-06] MEDS ORDERED: KETAMINE HCL 100MG/1ML VIAL INJ ONE (09:56)
[2019-01-06] MEDS ORDERED: 0.9 % SODIUM CHLORIDE 10 ML VIAL IVP ONE (09:56)
[2019-01-06] MEDS ORDERED: LIDOCAINE 1% W/EPI 1:200,000 MPF 30ML SQ ONE (09:56)
[2019-01-06] MEDS ORDERED: FENTANYL PF 100MCG/2ML VIAL IV ONE (09:56)
[2019-01-06] MEDS ORDERED: BUPIVACAINE 0.5% W/EPI MPF 30 ML VIAL IVP ONE (09:56)
[2019-01-06] MEDS ORDERED: CEFAZOLIN 1G VIAL IM ONE (09:56)
[2019-01-06] MEDS ORDERED: PROPOFOL 10 MG/ML VIAL IV ONE (09:56)
[2019-01-06] MEDS ORDERED: MIDAZOLAM HCL 2MG/2ML VIAL IV ONE (09:56)
[2019-01-06] MEDS ORDERED: NICOTINE14 MG/24 HOUR PATCH TD SCH (10:00)
[2019-01-06] MEDS ORDERED: METOCLOPRAMIDE HCL 10 MG/2 ML VIAL IVP PRN (13:57)
[2019-01-06] MEDS ORDERED: HYDROMORPHONE HCL 2 MG/ML VIAL IM PRN ×2 (13:57)
[2019-01-06] MEDS ORDERED: METOCLOPRAMIDE 10 MG TABLET PO PRN (13:57)
[2019-01-06] MEDS ORDERED: AL HYDROX/MAG HYDROX 30ML UD PO PRN (13:57)
[2019-01-06] MEDS ORDERED: TEMAZEPAM 15 MG CAPSULE PO PRN ×2 (13:57)
[2019-01-06] MEDS ORDERED: OXYCODONE/APAP 10MG-325MG TABLET PO PRN ×2 (13:57)
[2019-01-06] MEDS ORDERED: NALOXONE 0.4 MG/1 ML VIAL IVP PRN (13:57)
[2019-01-06] MEDS ORDERED: HYDROCODONE/APAP 7.5/325MG TABLET PO PRN ×2 (13:57)
[2019-01-06] MEDS ORDERED: DIPHENHYDRAMINE HCL 25 MG CAPSULE PO PRN ×2 (13:57)
[2019-01-06] MEDS ORDERED: RINGERS SOLUTION,LACTATED 1,000 ML IV SCH (13:57)
[2019-01-06] MEDS ORDERED: DIPHENHYDRAMINE HCL 50 MG/ML VIAL IVP PRN ×2 (13:57)
[2019-01-06] MEDS ORDERED: ACETAMINOPHEN 325 MG TAB PO PRN ×2 (13:57)
[2019-01-06] MEDS ORDERED: SENNOSIDES/DOCUSATE SODIUM UD CAPSULE PO PRN ×2 (13:57)
[2019-01-06] MEDS ORDERED: ALPRAZOLAM 0.25 MG TABLET PO PRN (13:58)
[2019-01-06] MEDS ORDERED: PANTOPRAZOLE SODIUM 40 MG TABLET PO SCH (14:00)
[2019-01-06] MEDS ORDERED: [UNRECOGNIZED DRUG - REMARK] PO PRN (14:00)
[2019-01-06] MEDS ORDERED: FUROSEMIDE 40 MG TABLET PO PRN (14:01)
[2019-01-06] MEDS ORDERED: ONDANSETRON 4 MG ODT TABLET SL PRN (14:02)
[2019-01-06] MEDS ORDERED: PATIENT OWN MED: VENTOLIN HFA INH PRN (14:02)
[2019-01-06] MEDS ORDERED: GABAPENTIN 300 MG CAPSULE PO SCH (16:00)
[2019-01-06] MEDS ORDERED: [UNRECOGNIZED DRUG - REMARK] PO SCH (17:30)
[2019-01-06] MEDS ORDERED: CEFAZOLIN 2 Gram 2 GM/50 ML BAG IVPB SCH (19:30)
[2019-01-06] MEDS ORDERED: METFORMIN ER HCL 500 MG TAB.ER.24H PO SCH (22:00)
[2019-01-06] MEDS ORDERED: SIMVASTATIN 20 MG TABLET PO SCH (22:00)
[2019-01-07] MEDS ORDERED: LOSARTAN POTASSIUM 25 MG TABLET PO SCH (12:00)
[2019-01-07] MEDS ORDERED: AMLODIPINE BESYLATE 5MG TAB PO SCH (12:00)
--- NOTE | 2019-01-09 10:47 | Operative Note ---
DATE: 01/06/2019. PRIMARY CARE PHYSICIAN: Dee Dee Mckeon M.D. PREOPERATIVE DIAGNOSIS: 1. POSTLUMBAR LAMINECTOMY SYNDROME, ICD-10 CODE M96.1. 2. RADICULOPATHY, ICD-10 CODE M54.16 AND M54.17. POSTOPERATIVE DIAGNOSIS: 1. POSTLUMBAR LAMINECTOMY SYNDROME, ICD-10 CODE M96.1. 2. RADICULOPATHY, ICD-10 CODE M54.16 AND M54.17. PROCEDURES: 1. Fluoroscopically guided access spinal space at L3-4. Placement of thin- walled spinal catheter at T11. 2. Diagnostic myelography with radiologic supervision and interpretation. 3. Spinal opioid bolus of hydromorphone 0.006 mg into the spinal space. 4. Incision, subcutaneous dissection, and anchoring of spinal catheter to supraspinous fascia with a Medtronic anchor and nonabsorbable suture. 5. Incision, subcutaneous dissection, and creation of subcutaneous pouch at the right posterior gluteal margin, the site picked by the patient for the pump identified as a Medtronic 20 mL programmable pump. 6. Tunneling of spinal catheter into right posterior pouch. Interfacing spinal catheter with second catheter component for connection to the pump. 7. Placement of 20 mL programmable pump prefilled with hydromorphone 2.0 mg per mL onto the field. Interface with revised catheter. 8. Placement of pump catheter connection into pouch at the right posterior gluteal margin, securing to posterior fascia at three points with pump eyelets with nonabsorbable suture. 9. Placement of curved 24-gauge Manuel needle into access port for the programmable pump. Aspiration and clearing catheter of opioid and cerebrospinal fluid mixture. 10. Diagnostic myelography with radiologic supervision and interpretation through access port confirming functionality of catheter, connections, and system. 11. Closure of incisions using Stratafix suture; #2-0 for the fascia and #3-0 for the skin. Dermabond closure. 12. Programming of pump to deliver by continuous infusion hydromorphone at 0.5 mg a day. 13. Epidural blood patch with 15 mL of autologous blood with sterile technique at L4-5 using an 18-gauge Tuohy needle for access. SURGEON: Jalil Williamson D.O. ANESTHESIA: Local sedation. ANESTHESIA PROVIDER: O[place]ON[place]. INDICATIONS: This patient presents with a history of intractable post laminectomy radiculopathy. Due to the failure of therapies, she is here for implantation of a permanent system. Her previous system had been removed on the opposite, left, side because of a pump pouch breakdown and infection. She has been cleared off antibiotics and her labs are normal. Ultrasound confirmed fibrotic scar tissue and possible seroma. DESCRIPTION OF PROCEDURE: She was taken to the operating room and was placed prone. Sterile prep, sterile technique. Under imaging the spinal interspace at L3-4 was marked on the right. The skin was infiltrated using a sterile technique and after local was infiltrated, inserted into the spinal space with AP and lateral imaging. On lateral image the needle was walked in to the spinal space. With cerebrospinal fluid flow, a thin- walled spinal catheter was advanced and positioned at T11. The catheter was clamped to stop cerebrospinal fluid leak which was still noted. The skin above and below the needle was infiltrated. An incision was made and subcutaneous dissection was conducted to the supraspinous fascia. The needle was removed, and then the catheter was anchored to the supraspinous fascia with a [employer] Medical[employer] anchor and nonabsorbable suture. Cerebrospinal fluid was still noted through the catheter. The catheter was clamped. At the right posterior gluteal margin, the site picked by the patient for the pump, the skin was infiltrated. An incision was made and subcutaneous dissection was conducted to form a pouch of suitable size and depth for the pump , a 20 mL programmable Medtronic pump. A tunneling tool was used to carry the catheter into the pump pouch. The catheter was then interfaced with the second catheter component by way of a connector. Antibiotic irrigation and Bovie for hemostasis. A 20 mL programmable pump was placed onto the field prefilled with hydromorphone 2.0 mg per mL. The revised catheter was then interfaced with the pump. The pump was then placed into the formed pouch and was secured to the posterior fascia with nonabsorbable suture at three points with pump eyelets. A 24-gauge Manuel needle was inserted into the access port and 1.0 mL of catheter contents was aspirated clearing the catheter of opioid and cerebrospinal fluid mixture. Diagnostic myelography was then performed through the access port. Contrast flow characteristics were appropriate for the space. Smooth, linear flow through the pump and through the catheter was noted with no connection abnormalities. No bends, leaks, or kinks. The tip of the catheter was noted at T11. Myelogram confirmed flow and functionality. The incisions were then closed using Stratafix suture; #2-0 for the fascia and # 3-0 for the skin. Dermabond closure approximated the edges of the wound. The pump was then programmed to deliver by continuous infusion hydromorphone at 0.5 mg a day. This is slightly higher than normal, but this patient has had a pump previously at higher dosages. All alarms were set on the pump. After the pump was programmed and under imaging, at L4-5 the skin was infiltrated. An 18-gauge Tuohy needle was placed with loss of resistance into the epidural space. Simultaneously 15 mL of autologous blood was drawn with sterile technique from the left antecubital. This blood patch was placed onto the field maintaining sterility. An epidural blood patch was performed at this level with this blood. The needle was removed and the dressings were placed. She was then transported to the recovery room stable and flat with a pillow under the head and knees. She was showing no abnormal pain. She had full functionality of the extremities and was complaining of nothing unusual or abnormal. She was stable. She will be kept flat for four hours and then will be slowly elevated for one hour. She will be kept for observation and will be discharged in the morning. DISCHARGE INSTRUCTIONS: 1. The sites are to remain clean and dry. No showering or bathing in any way that would compromise the dressings. The Dermabond dressing may be used during showering but should not be immersed in water. Therefore, showering is approved. 2. Standard medications to be resumed including Levaquin the antibiotic 500 mg once a day for 14 days. 3. Potential spinal opioid side effects including respiratory depression, nausea, vomiting, constipation, urinary retention, lightheadedness, and rash have all been discussed and reviewed. Should these occur, she is to contact the clinic immediately or go to a local emergency room. 4. All other instructions were provided including numbers to contact with problems. 5. She will be kept overnight and will be discharged in the morning. JOB NUMBER: [id number] cc: Bertha Palmer
--- NOTE | 2019-01-10 12:49 | RADIOLOGY REPORT ---
EXAM: SPINE, 1 VIEW HISTORY: SPINAL CATHETER IMPLANT. TECHNIQUE: A single frontal view of the thoracolumbar spine. COMPARISON: Spine radiograph 04/15/2018. FINDINGS: A pump device is partially visualized superimposing the right iliac bone. A thin catheter is present with the tip superimposing the lower thoracic spine. For additional details, please refer to the operative report. Right upper abdominal quadrant surgical clips are noted. Lower lumbar spine degenerative change. IMPRESSION: ABOVE. JOB NUMBER: [id number] [facility]
== END 2019-01-06 19:25 | disposition home or self-care (01) ==
LOC: SUR 09:55 → MEDSURG 13:56 → SUR 19:25
PROVIDERS: ATTEND Pain Medicine Interventional Pain Medicine
DX: M96.1 Postlaminectomy syndrome, not elsewhere classified (principal); M54.16 Radiculopathy, lumbar region; M54.17 Radiculopathy, lumbosacral region; I10 Essential (primary) hypertension; R35.0 Frequency of micturition; E11.9 Type 2 diabetes mellitus without complications; K86.1 Other chronic pancreatitis; E78.00 Pure hypercholesterolemia, unspecified; R60.9 Edema, unspecified; K21.9 Gastro-esophageal reflux disease without esophagitis; E03.9 Hypothyroidism, unspecified; G47.33 Obstructive sleep apnea (adult) (pediatric); F17.210 Nicotine dependence, cigarettes, uncomplicated
CPT/HCPCS: 62350; 62362; 62273; 01936; 62367; 72020; Q9967; J3010; J0690; J1170; J3490; C1755; C1776